=== PATIENT | female | born 1975 | race Asian ===

== ENCOUNTER 2022-02-12 10:29 | Emergency (ER) | payer OTHER ==
[~2022-02-12] VITALS: Ht 157.5 cm; Wt 68.0 kg
[2022-02-12 10:39] VITALS: BP 109/72
== END 2022-02-12 11:17 | disposition home or self-care (01) ==
LOC: ER 10:33
DX: R53.83 Other fatigue (principal); R68.83 Chills (without fever); R51.9 Headache, unspecified; J02.9 Acute pharyngitis, unspecified; R05.9 Cough, unspecified; R43.9 Unspecified disturbances of smell and taste; Z20.822 Contact with and (suspected) exposure to COVID-19; R73.03 Prediabetes; I10 Essential (primary) hypertension
CPT/HCPCS: 99283; C9803; U0003